=== PATIENT | male | born 1995 | race Hispanic/Latino ===

== ENCOUNTER 2024-05-19 15:23 | Emergency (ER) | payer SELFPAY ==
[~2024-05-19] VITALS: Ht 172.7 cm; Wt 90.5 kg
[2024-05-19] MEDS ORDERED: VENTOLIN HFA18 GM INH (18:23)
[2024-05-19 18:50] LABS: CORONAVIRUS COVID-19 AG NEGATIVE (NEGATIVE); INFLUENZA A AG NEGATIVE (NEGATIVE); INFLUENZA B AG NEGATIVE (NEGATIVE)
[2024-05-19] MEDS ORDERED: IBUPROFEN 800 MG TAB PO ONE (19:30)
[2024-05-19] MEDS ORDERED: LACTATED RINGER'S 1,000 ML IV ONE (19:30)
[2024-05-19 19:49] LABS: BASOPHILS 0.8 % (0-2); EOSINOPHILS 0.2 % (0-6); HEMATOCRIT 43.4 % (35.0-50.0); HEMOGLOBIN 15.6 g/dL (12.0-18.0); LYMPHOCYTES 32.4 % (24-44); MCH 33.3 (27-36); MCV 92.4 fl (81-99); MONOCYTES 14.1 % (0-12); NEUTROPHILS 52.5 % (39-80); PLATELET COUNT 186 K/uL (140-440); RDW 12.9 (10.5-15.0)
[2024-05-19 20:04] LABS: ALBUMIN 3.9 g/dL (3.4-5.0); ANION GAP 16.4 (7-21); BILIRUBIN, TOTAL 0.8 mg/dL (0.2-1.0); BUN/CREATININE RATIO 11.26 (6.0-28.6); CALCIUM 8.6 mg/dL (8.5-10.1); CREATININE, SERUM 0.71 mg/dL (0.70-1.30); POTASSIUM 3.4 mmol/L (3.5-5.1); PROTEIN, TOTAL 7.8 g/dL (6.4-8.2)
[2024-05-19 20:37] LABS: BILIRUBIN, URINE POSITIVE (negative); BLOOD/HGB, URINE NEGATIVE (Negative); KETONE, URINE NEGATIVE (Negative); LEUK ESTERASE, URINE NEGATIVE (negative); NITRITE, URINE NEGATIVE (negative)
[2024-05-19 20:43] LABS: BACTERIA, URINE NONE SEEN /hpf (negative); CASTS, URINE NONE SEEN \\lpf; COLLECTION TYPE, URINE CLEAN CATCH; CRYSTALS, URINE NONE SEEN (0-1+); EPITHELIAL CELLS, URINE NONE SEEN /lpf (0-1+); RED BLOOD CELLS, URINE 0-1 /hpf (0-5); REFLEX CULTURE, URINE No (No)
[2024-05-19 21:42] VITALS: BP 113/72
== END 2024-05-19 21:42 | disposition home or self-care (01) ==
LOC: ED 15:23
PROVIDERS: Emergency Medicine; Internal Medicine
DX: B34.9 Viral infection, unspecified (principal)
CPT/HCPCS: 36415; 71045; 80053; 81001; 85025; 86308; 87651; 99283-25; A9270; J7121